=== PATIENT | male | born 2000 | race Two or more races ===

== ENCOUNTER 2025-01-11 22:18 | Emergency (ER) | payer OTHER ==
[~2025-01-11] VITALS: Ht 177.8 cm; Wt 63.2 kg
--- NOTE | 2025-01-12 00:07 | DVH ---
EXAMINATION: XY RIBS BILATERAL INDICATION: rib pain COMPARISON: None TECHNIQUE: Frontal view of the chest and radiographs of bilateral ribs FINDINGS: Cardiomediastinal contour is normal. Lungs are well-inflated and clear. No pleural effusion or pneumo thorax.. No displaced rib fracture identified. IMPRESSION: No abnormality demonstrated.
[2025-01-12 01:28] VITALS: BP 132/87; PULSE 72; RESP 17; TEMP 98.3; O2SAT 96
--- NOTE | 2025-01-12 01:48 | ED.PDOC ---
Back pain HPI HPI Comments PT CAME TO THE ER WITH CC OF RIB PAIN X 1WEEK. PT DOES NOT REMEMBER HURTING THE AREA BUT DOES REPORT THAT HE DID HAVE A BRUISE ON THE LEFT SIDE OF HIS RIB CAGE AND HE HAS BEEN HAVING PAIN ON INSPIRATION AND EXPIRATION. PT IS A &OX4 RR EVEN AND REGULAR NO DISTRESS NOTED AT THIS TIME. PT DENIES N/V/D CP SOB Chief Complaint: Rib Pain Time Seen by MD: 22:34 Reviewed Notes: Nurses Notes, Medications, Allergies Information Source: Patient Mode of Arrival: Ambulatory Past Medical History PAST MEDICAL HISTORY: Denies Surgical History: Denies all surgeries Family History Family History: Reviewed,noncontributory to illness Social History Smoker: Non-Smoker Alcohol: Denies ETOH Use Drugs: Denies Drug Use All Other Systems: Reviewed and Negative (SEE HPI) Physical Exam General Appearance: No Apparent Distress, Normal HEENT: Pharynx Normal Neck: Full Range of Motion, Non-Tender Respiratory: Lungs Clear, No Accessory Muscle Use, No Respiratory Distress, Normal Breath Sounds, Other (TENDERNESS PALPATED ALONG LEFT UPPER CHEST MID CLAVICULAR LINE NO NOTED EXTERNAL GROSS VISIBLE TRAUMA.) Cardiovascular: No Edema, No JVD, No Murmur, No Gallop, Normal Peripheral Pulses, Regular Rate/Rhythm Breast Exam: Deferred Gastrointestinal: Non Tender, Soft Genitalia: Deferred Pelvic: Deferred Rectal: Deferred Extremities: Normal capillary refill, Normal range of motion, No pedal edema Musculoskeletal : Apperance: Normal Neurologic: Alert, No Motor Deficits, Normal Affect, Normal Mood, No Sensory Deficits Cerebellar Function: Normal Reflexes: NOT DONE Skin: Dry, Normal Color, Warm Lymphatic: No Adenopathy Was a procedure done? Was a procedure done?: No Back Pain Differential Dx Differential Diagnosis: Fracture, Musculoskeletal Pain, Other (PNA) X-Ray, Labs, Meds, VS Vital Signs Date Time Temp Pulse Resp B/P (MAP) Pulse Ox O2 Delivery O2 Flow Rate FiO2 01/12/25 01:28 98.3 72 17 132/87 (102) 96 98.3 01/11/25 22:21 98.7 87 20 131/92 98 98.7 X-Ray, Labs, Meds, VS Comment BILATERAL RIB AND CHEST X-RAY SHOWS NO ACUTE FRACTURES OR CARDIOPULMONARY ACUTE FINDINGS. COSTOCHONDRITIS. OFFERED PATIENT PAIN MEDICATION IBUPROFEN TORADOL PATIENT REFUSED STATES HE HAS NOT AT HOME WE WILL TAKE ANY ITS OWN. REST CONSIDER USING ICE TO THE AREA AVOID THE GYM UNTIL ACUTE PAIN RESOLVES. ADVISED TO FOLLOW UP WITH HIS PCP IN 2-3 DAYS NECESSARY ER RETURN PRECAUTIONS GIVEN PATIENT INDICATES UNDERSTANDING AND AGREES WITH DISCHARGE PLAN OF CARE. Time of 1ST Reevaluation: 22:45 Reevaluation 1ST: Unchanged Time of 2ND Reevaluation: 01:45 Reevaluation 2ND: Improved Patient Education/Counseling: Diagnosis, Treatment, Prognosis, Need For Follow Up Family Education/Counseling: No Family Present SEPSIS Sepsis Screen Date sepsis recognized/suspect: Jan 11, 2025 Time Sepsis recognized/suspect: 2226 Recent Procedure: No On Antibiotic Therapy: No Respiratory Rate >20: No Heart Rate >90: No Temp<36 C (96.8 F) or >38.3 C: No SBP <90 or MAP <65 mmHG: No New Acute Mental Status Change: No Is the patient on CPAP, BIPAP,: No Physician Orders Ribs Bilateral (01/11/25 22:45) Vital Signs Date Time Temp Pulse Resp B/P (MAP) Pulse Ox O2 Delivery O2 Flow Rate FiO2 01/12/25 01:28 98.3 72 17 132/87 (102) 96 98.3 01/11/25 22:21 98.7 87 20 131/92 98 98.7 Departure 1 Departure Time of Disposition: 01:44 Impression: Primary Impression: Costochondritis Disposition: 01 HOME / SELF CARE / HOMELESS Condition: Stable Discharged With: Self Critical Care Note Critical Care Time?: No Stability Stability form required: ROBERT Rodriguez Jan 12, 2025 01:48
== END 2025-01-12 01:44 | disposition home or self-care (01) ==
LOC: ER 22:18
DX: M94.0 Chondrocostal junction syndrome [Tietze] (principal)
CPT/HCPCS: 71111